=== PATIENT | male | born 1945 | race Caucasian/White ===

== ENCOUNTER 2024-09-06 06:49 | Day surgery (SDC) | payer OTHER ==
[2024-09-04 11:42] LABS: Absolute Basophils 0.1 K/uL (0-0.5); Absolute Eosinophils 0.4 K/uL (0-0.5); Absolute Lymphocytes (CBC) 1.7 K/uL (0.7-4.9); Absolute Monocytes 0.7 K/uL (0.1-1.3); Absolute Neutrophil 5.5 K/uL (1.8-8.0); Basophils % 1.1 % (0-1.3); Eosinophils % 4.6 % (0-4.4); Hematocrit 43.6 % (39.6-49.0); Hemoglobin 14.9 g/dL (13.6-17.9); Lymphocytes % 20.7 % (15.3-44.8); MCH 32.8 pg (27.0-35.0); MCHC 34.3 g/dL (32.0-36.0); MCV 95.7 fL (80-100); MPV 8.9 fL (7.6-11.3); Monocytes % 8.1 % (3.3-12.3); Neutrophils % 65.5 % (41.7-73.7); Platelets 194 thou/uL (152-406); RBC Red Blood Cell Count 4.55 M/uL (4.33-5.43); Red Cell Distribution Width 13.7 % (12.1-15.2)
--- NOTE | 2024-09-05 12:30 | EKG ---
Test Date: 2024-09-04 Test Time: 12:21:19 Languages And Literature Instructor: ALMA DELIA MEASUREMENT RESULTS: Intervals: Rate: 54 WV: 158 QRSD: 78 QT: 400 QTc: 379 Bradley: P: 64 WV: 158 QRS: 54 T: 61 INTERPRETIVE STATEMENTS: Sinus bradycardia Otherwise normal ECG Compared to ECG 05/01/2015 08:20:26 Aberrant conduction of supraventricular beat(s) no longer present Electronically Signed On 09-05-24 12:29:12 CELL PHONE REPAIR TECHNICIAN by Marek Fulton
[2024-09-06] MEDS ORDERED: Ringers Lactate 1,000 ML IV ONE (07:07)
[2024-09-06] MEDS ORDERED: OXYMETAZOLINE HCL 0.05% 15ML NAS ONE (07:15)
[2024-09-06] MEDS ORDERED: NA CHLORIDE 0.9% 500 ML ONE (07:15)
[2024-09-06] MEDS ORDERED: LIDOCAINE HCL/EPINEPHRINE 20 ML MDV ONE (07:15)
[2024-09-06] MEDS ORDERED: MIDAZOLAM HCL 2 MG/2 ML INJ ONE (07:57)
[2024-09-06] MEDS ORDERED: ONDANSETRON 4 MG/2 ML VIAL ONE (07:57)
[2024-09-06] MEDS ORDERED: GLYCOPYRROLATE 0.2 MG/ML SYR ONE ×3 (07:57→08:56)
[2024-09-06] MEDS ORDERED: propofoL 200 MG/20 ML VIAL IV ONE (07:57)
[2024-09-06] MEDS ORDERED: LIDOCAINE 1% MPF 5 ML VIAL ONE (07:57)
[2024-09-06] MEDS ORDERED: dexAMETHasone 10 MG/ML VIAL ONE (07:57)
[2024-09-06] MEDS ORDERED: ROCURONIUM 50 MG/5 ML VIAL IV ONE (07:57)
[2024-09-06] MEDS ORDERED: FENTANYL CITR 100 MCG/2 ML ONE (07:57)
[2024-09-06] MEDS ORDERED: NEOSTIGMINE 1 MG/ML -10 ML VIAL ONE (08:49)
[2024-09-06 11:06] VITALS: BP 111/53; TEMP 97.1; O2SAT 96
--- NOTE | 2024-09-06 19:50 | OP ---
Date of Procedure: 09/06/2024 Surgeon: MIKE SETH Preoperative Diagnosis: Bilateral chronic eustachian tube dysfunction. Postoperative Diagnosis: Bilateral chronic eustachian tube dysfunction. Procedure: Nasopharyngoscopy with dilation of bilateral eustachian tubes with Acclarent balloon syst em. Anesthesia: General endotracheal anesthesia was administered. Specimens: None. Estimated Blood Loss: Less than 2 mL. Findings: Mild left nasal septal deviation, bilateral stenosis of cartilaginous eustachian tubes. Complications: None. Disposition: Stable. The patient tolerated the procedure well. Indication For Procedure: The patient is a pleasant 79-year-old male who presented to my outpatient clinic with chronic bilateral ear pain and inability to autoinsufflate. Tympanometry revealed bilate ral eustachian tube dysfunction that has been refractory to autoinsufflation exercises, nasal cortico steroid spray, and decongestants. He declined the eustachian tube balloon dilation in the office, th us these were indications to bring the patient to operative suite for the above-mentioned procedure. He understood, all the questions were answered. Risks versus benefits and complications were explai prem in detail. A consent form was signed, was placed in the chart. Description Of Procedure: The patient was transferred from the preoperative holding area to the oper ative suite by the Department of Anesthesia, placed on the operative table supine and sedated and int ubated in normal fashion. Afrin-soaked nasal pledgets were introduced into bilateral nasal cavities and allowed to sit for appr oximately 5-10 minutes. The pledgets were removed from the right nasal cavity and the patient had ad equate patency of the nasal cavity. I utilized a 0-degree rigid nasal endoscope and advanced it sonny g the floor back to the nasopharynx. I lateralized the posterior and inferior turbinate with a Kingman elevator in order to gain access to the eustachian tube orifice. Under direct visualization, the Ac clarent balloon was gently inserted into the cartilaginous portion of the right eustachian tube and t he balloon was inflated to 12 mmHg and held in place for approximately 2 minutes. The balloon was th en deflated and removed from the right nasal cavity. Next, my attention was placed to the left nasal cavity. A Kingman elevator was utilized to lateralize the posterior and inferior turbinates to gain a ccess to the left eustachian tube orifice. The balloon was inserted into the lateral orifice of the eustachian tube and inflated to 12 mmHg for approximately 2 minutes. The balloon was then deflated a nd removed from the left nasal cavity. Excess mucus and secretions were removed with the suction. A mustache dressing was placed. He tolerated the procedure well and will be discharged home to follow up in 2-4 weeks or sooner if needed. MAHAD/ZENY Voice ID: [id number] Report ID: [id number]
== END 2024-09-06 10:24 | disposition home or self-care (01) ==
LOC: OR 06:49
PROVIDERS: ATTEND Otolaryngology Facial Plastic Surgery
PROC: 097 Ear, Nose, Sinus, Dilation (ICD-10-PCS; principal; 2024-09-06 08:00)
DX: H68.023 Chronic Eustachian salpingitis, bilateral (principal)
CPT/HCPCS: 36415; 80048; 85025; 93005; J1100; J2003; J2250; J2405; J2704; J2710; J3010; J7040; J7120